=== PATIENT | female | born 1960 | race Caucasian/White ===

== ENCOUNTER 2020-03-07 17:24 | Inpatient (IN) ==
[2020-03-07 18:23] LABS: Basophils % 0.4 % (0.0-0.8); Eosinophils % 0.7 % (0.00-10.9); Hematocrit 41.5 VOL% (35.7-47.0); Hemoglobin 13.7 GM/DL (12.0-16.0); Immature Granulocytes % 0.4 %; Immature Granulocytes Absolute 0.02 #; Lymphocytes # 1.1 10*3/uL (1.4-4.0); Lymphocytes % 20.6 % (21.3-54.2); Mean Corpuscular Volume 93.3 FL (87-102); Mean Platelet Volume 9.5 FL (9.6-12.0); Monocytes % 15.6 % (1.7-12.7); Neutrophils % 62.3 % (38.7-73.9); Platelet Count 363 T/CUMM (130-400); Red Blood Count 4.45 MC/CUMM (3.8-5.5); Red Cell Distribution Width 15.1 % (9.3-17.3); White Blood Count 5.4 T/CUMM (4-12)
[2020-03-07 18:37] LABS: Albumin 2.8 G/DL (3.4-5.0); Bilirubin,Total 1.2 MG/DL (0.2-1.0); Calcium 8.9 MG/DL (8.5-10.1); Total Protein 6.8 G/DL (6.4-8.3)
[2020-03-07 18:50] LABS: Apearance,Urine CLEAR (Clear); Bacteria,Urine Occasional /HPF (Few); Blood, Urine Negative (Negative); Glucose,Urine (UA) Negative (Negative); Hyaline Casts,Urine 1 /LPF (0-3); Ketones,Urine 5 mg/dL (Negative); Mucus,Urine Many /LPF (Occasional); Nitrite,Urine Negative (Negative); Protein,Urine 30 MG/DL; RBC,Urine 1 /HPF (0-4); Squamous Epithelial Cell,Urine Occasional /HPF (0-10); Urine Color Amber (Yellow); Urine Specific Gravity 1.023 (1.001-1.035); WBC,Urine 3 /HPF (0-6)
[2020-03-07 18:54] LABS: Bilirubin,Urine Small mg/dL (Negative)
[2020-03-07 18:56] LABS: Ferritin 644.4 ng/ml (8-252)
[2020-03-07 19:12] LABS: Lymphocytes 21 % (20-55); Polychromasia 1+; Segmented Neutrophils 60 % (50-85); Total Cells Counted 100
[2020-03-07] MEDS ORDERED: DEXTROSE 50% 25 GM/50 ML VIAL IV PRN (20:32)
[2020-03-07] MEDS ORDERED: guaiFENesin/DM ER 600-30 MG TABLET PO PRN (20:32)
[2020-03-07] MEDS ORDERED: GLUCAGON 1 MG VIAL IM PRN (20:32)
[2020-03-07] MEDS ORDERED: DOCUSATE SODIUM 100 MG CAPSULE PO PRN (20:32)
[2020-03-07] MEDS ORDERED: ACETAMINOPHEN 325 MG TABLET PO PRN (20:32)
[2020-03-07] MEDS ORDERED: ONDANSETRON 4 MG/2 ML VIAL IV PRN (20:32)
[2020-03-07] MEDS: LEVOFLOXACIN INJ 750 MG in PREMIX 1 EACH IV SCH (22:55)
[2020-03-07] MEDS: ENOXAPARIN 40 MG/0.4 ML SYRINGE SUBCUT SCH (22:56)
[2020-03-08] MEDS: SODIUM CHLORIDE 0.9% 1,000 ML IV SCH ×2 (00:32→16:25)
[2020-03-08] MEDS: ALBUTEROL INHALER 18 GM INH SCH ×4 (01:43→18:00)
[2020-03-08 05:18] LABS: Basophils % 0.4 % (0.0-0.8); Eosinophils % 0.6 % (0.00-10.9); Hematocrit 37.3 VOL% (35.7-47.0); Hemoglobin 12.4 GM/DL (12.0-16.0); Immature Granulocytes % 0.4 %; Immature Granulocytes Absolute 0.02 #; Lymphocytes # 1.2 10*3/uL (1.4-4.0); Lymphocytes % 22.7 % (21.3-54.2); Mean Corpuscular HGB Conc 33.2 GM/DL (32-36); Mean Corpuscular Volume 92.1 FL (87-102); Mean Platelet Volume 9.6 FL (9.6-12.0); Monocytes % 18.4 % (1.7-12.7); Neutrophils % 57.5 % (38.7-73.9); Platelet Count 303 T/CUMM (130-400); Red Blood Count 4.05 MC/CUMM (3.8-5.5); Red Cell Distribution Width 14.9 % (9.3-17.3); White Blood Count 5.4 T/CUMM (4-12)
[2020-03-08 05:47] LABS: Albumin 2.5 G/DL (3.4-5.0); Bilirubin,Total 1.6 MG/DL (0.2-1.0); Calcium 8.2 MG/DL (8.5-10.1); Osmolality,Calculated 277.3 MOS/KG (273-304); Thyroid Stimulating Hormone 0.966 uIU/ml (0.358-3.74); Total Protein 6.2 G/DL (6.4-8.3)
[2020-03-08] MEDS ORDERED: POTASSIUM CHLORIDE 20 MEQ TABLET PO STA (08:58)
[2020-03-08] MEDS: PANTOPRAZOLE 40 MG TABLET PO SCH (09:18)
[2020-03-08] MEDS: ZINC GLUCONATE 50 MG TABLET PO SCH (09:18)
[2020-03-08 11:13] LABS: Eosinophils 1 % (0-10); Lymphocytes 21 % (20-55); Platelet Estimate Normal; Polychromasia Slight; Segmented Neutrophils 60 % (50-85); Total Cells Counted 100
[2020-03-08] MEDS ORDERED: predniSONE 5 MG TABLET ONE (11:33)
[2020-03-08] MEDS: predniSONE 1 MG TABLET PO SCH (11:37)
[2020-03-08] MEDS: ATROVENT INHALER INH SCH ×2 (13:52→18:00)
[2020-03-08] MEDS: ENOXAPARIN 40 MG/0.4 ML SYRINGE SUBCUT SCH (21:06)
[2020-03-08] MEDS: LEVOFLOXACIN INJ 750 MG in PREMIX 1 EACH IV SCH (23:32)
[2020-03-09] MEDS: ATROVENT INHALER INH SCH ×4 (01:48→18:11)
[2020-03-09] MEDS: ALBUTEROL INHALER 18 GM INH SCH ×4 (01:48→18:11)
[2020-03-09 05:34] LABS: Calcium 7.9 MG/DL (8.5-10.1)
[2020-03-09] MEDS: SODIUM CHLORIDE 0.9% 1,000 ML IV SCH ×2 (07:18→20:24)
[2020-03-09] MEDS: predniSONE 1 MG TABLET PO SCH (08:49)
[2020-03-09] MEDS: PANTOPRAZOLE 40 MG TABLET PO SCH (08:50)
[2020-03-09] MEDS: LEVOFLOXACIN INJ 750 MG in PREMIX 1 EACH IV SCH (20:24)
[2020-03-09] MEDS: ENOXAPARIN 40 MG/0.4 ML SYRINGE SUBCUT SCH (20:25)
[2020-03-10] MEDS: ATROVENT INHALER INH SCH ×4 (00:34→18:52)
[2020-03-10] MEDS: ALBUTEROL INHALER 18 GM INH SCH ×4 (00:34→18:53)
[2020-03-10] MEDS: ZINC GLUCONATE 50 MG TABLET PO SCH (09:19)
[2020-03-10] MEDS: predniSONE 1 MG TABLET PO SCH (09:19)
[2020-03-10] MEDS: PANTOPRAZOLE 40 MG TABLET PO SCH (09:19)
[2020-03-10] MEDS: SODIUM CHLORIDE 0.9% 1,000 ML IV SCH ×2 (19:16→22:57)
[2020-03-10] MEDS: LEVOFLOXACIN INJ 750 MG in PREMIX 1 EACH IV SCH (20:21)
[2020-03-10] MEDS: ENOXAPARIN 40 MG/0.4 ML SYRINGE SUBCUT SCH (20:21)
[2020-03-11] MEDS: ATROVENT INHALER INH SCH ×4 (00:34→18:43)
[2020-03-11] MEDS: ALBUTEROL INHALER 18 GM INH SCH ×4 (00:34→18:43)
[2020-03-11 07:36] LABS: SARS-CoV-2 Total Ab Interp Reactive
[2020-03-11] MEDS: PANTOPRAZOLE 40 MG TABLET PO SCH (09:45)
[2020-03-11] MEDS: predniSONE 1 MG TABLET PO SCH (09:50)
[2020-03-11] MEDS ORDERED: BISMUTH SUBSALICYLATE 30 ML/524 MG 240 ML/BOTTLE PO PRN (10:46)
[2020-03-11] MEDS: SODIUM CHLORIDE 0.9% 1,000 ML IV SCH (13:34)
[2020-03-11] MEDS: LEVOFLOXACIN 750 MG TABLET PO SCH (18:29)
[2020-03-11] MEDS: ENOXAPARIN 40 MG/0.4 ML SYRINGE SUBCUT SCH (22:11)
[2020-03-12] MEDS: ALBUTEROL INHALER 18 GM INH SCH ×4 (00:48→18:05)
[2020-03-12] MEDS: ATROVENT INHALER INH SCH ×4 (00:48→18:05)
[2020-03-12] MEDS: SODIUM CHLORIDE 0.9% 1,000 ML IV SCH ×2 (01:00→13:39)
[2020-03-12] MEDS: predniSONE 1 MG TABLET PO SCH ×2 (07:56→08:38)
[2020-03-12] MEDS: ZINC GLUCONATE 50 MG TABLET PO SCH ×2 (07:56→08:38)
[2020-03-12] MEDS: LEVOFLOXACIN 750 MG TABLET PO SCH ×2 (07:56→08:38)
[2020-03-12] MEDS: PANTOPRAZOLE 40 MG TABLET PO SCH ×2 (07:57→08:38)
[2020-03-12 18:07] VITALS: BP 140/62
== END 2020-03-12 19:03 | disposition home or self-care (01) | DRG 177 ==
LOC: N.ED 17:24 → N.EDINP 20:32 → SUATTDRO 20:32 → N.2E 23:06
PROVIDERS: ADMIT Internal Medicine; ATTEND Internal Medicine Geriatric Medicine